=== PATIENT | female | born 1940 | race Caucasian/White ===

== ENCOUNTER 2021-10-03 07:53 | Outpatient (CLI) | payer MEDICARE, SELFPAY | END 2021-10-03 07:54 | disposition home or self-care (01) | LOC: OP CLINIC 07:54 | PROVIDERS: PCP Physician Assistant Medical; Visit Provider Internal Medicine Gastroenterology | DX: K21.9 Gastro-esophageal reflux disease without esophagitis (principal); K63.5 Polyp of colon; K64.8 Other hemorrhoids; K57.30 Diverticulosis of large intestine without perforation or abscess without bleeding | CPT/HCPCS: 45385; J2250; J3010 ==

== ENCOUNTER 2022-02-17 11:32 | Outpatient (CLI) | payer MEDICARE, SELFPAY ==
--- NOTE | 2022-02-17 11:40 | CRLHL7_ITS ---
For Patients: As a result of the Century Cures Act, medical imaging exams and procedure reports are released immediately into your electronic medical record. You may view this report before your referring provider. If you have questions, please contact your health care provider. BILATERAL SCREENING MAMMOGRAM WITH COMPUTER-AIDED DETECTION AND TOMOSYNTHESIS TECHNIQUE: CC and MLO views were obtained. These mammographic images have been obtained using full-field digital technique. These mammographic images were interpreted with the benefit of computer-aided detection. Breast Tomosynthesis was used in this interpretation. COMPARISON FILM: 11/15/20, 07/12/18, AMC-N 06/29/17. FINDINGS: There are scattered areas of fibroglandular density. IMPRESSION: There is no radiographic evidence for malignancy. ASSESSMENT: BI-RADS Category 1: Negative RECOMMENDATION: Routine screening mammogram in 1 year. A lay language report of this examination will be provided to the patient. Kenan Corona M.D. Diagnostic Radiologist [email or web address] Transcribed: 9:43 a.m. PT/Dictated by: Kenan Corona MD @ 02/21/2022 8:23:00 AM (Electronically Signed)
== END 2022-02-17 11:33 | disposition home or self-care (01) ==
PROVIDERS: PCP Physician Assistant Medical; Visit Provider Physician Assistant Medical
DX: Z12.31 Encounter for screening mammogram for malignant neoplasm of breast (principal)
CPT/HCPCS: 77063; 77067

== ENCOUNTER 2022-04-25 10:00 | Outpatient (RCR) | payer MEDICARE, SELFPAY | END 2022-04-26 11:57 | disposition home or self-care (01) | PROVIDERS: PCP Physician Assistant Medical; Visit Provider Physician Assistant Medical | DX: M62.9 Disorder of muscle, unspecified (principal) | CPT/HCPCS: 97110; 97140; 97163; 97530 ==

== ENCOUNTER 2023-12-27 10:07 | Outpatient (CLI) | payer MEDICARE, SELFPAY ==
--- OUTSIDE RECORDS SUMMARY | 2023-12-27 10:12 | XMS_ITS | Clinical Summary ---
Author Organization [facility] Address [place], [place] [address] Care Team Providers Care Psychological Stress Evaluator Name Role Phone Ester Cheney Unavailable [phone] Renetta Marie Primary Care Provider Allergies No known active allergies Medications Medication Sig Dispensed Refills Start Date End Date Status multivitamin (MVI) tablet Take 1 tablet by mouth once daily. 0 11/27/2012 Active timolol maleate (TIMOPTIC) 0.5 % ophthalmic solution Place 1 Drop into both eyes once daily. 5 mL 0 05/21/2013 Active ketoconazole 2% shampoo (NIZORAL) 2 % shampooIndications :Fungal dermatitis Shampoo the hair thoroughly each day for 3 days. 120 mL 1 01/27/2020 Active Soolantra 1 % topical creamIndications:R osacea Apply 1 Drop topically to affected area(s) once daily if needed (rosacea). 30 g 3 03/04/2021 Active ketoconazole 2% topical (NIZORAL) creamIndications:R osacea Apply to facial rash up to twice daily. 30 g 1 12/02/2021 Active enalapril (VASOTEC) 10 mg tabletIndications: Essential hypertension Take 1.5 Tablets (15 mg) by mouth two times daily. 270 Tablet 3 12/07/2023 Active hydroCHLOROthiazid e 25 mg tabletIndications: Essential hypertension Take 1 Tablet (25 mg) by mouth two times daily. 180 Tablet 3 12/07/2023 Active enalapril-hydrochl orothiazide, 10-25 mg, (VASERETIC) 10-25 mg tabletIndications: HTN (hypertension) TAKE 1 TABLET BY MOUTH TWICE DAILY 180 Tablet 3 12/05/2022 4 Discontinue d(*Patient states no longer taking) hydroCHLOROthiazid e 25 mg tabletIndications: Essential hypertension TAKE 1 TABLET(25 MG) BY MOUTH TWICE DAILY 180 Tablet 10/30/2023 4 Discontinue d(Reorder (E-cancel not sent)) enalapril (VASOTEC) 10 mg tabletIndications: Essential hypertension TAKE 1 TABLET(10 MG) BY MOUTH TWICE DAILY 180 Tablet 10/30/2023 4 Discontinue d(Reorder (E-cancel not sent)) Active Problems Problem Noted Date Diagnosed Date Essential hypertension 09/21/2017 Adenomatous colon polyp 05/10/2017 Overview (10/14/2021): Colonoscopy 04/2017 polyp, repeat in 5 years Colonoscopy 09/2021 polyp, no follow up colonoscopy needed Prediabetes 06/17/2013 Rosacea 05/21/2013 Morbid obesity with BMI of 40.0-44.9, adult 04/27 Galactorrhea of right breast 11/27/2012 Hearing loss 11/27/2012 Resolved Problems Problem Noted Date Diagnosed Date Resolved Date GERD (gastroesophageal reflux disease) 10/13/2013 06/27/2017 Encounters Date Type Department Care Team Description 12/20/2023 Orders Only [facility] Scanner 1 scan: (1-Ord) [facility] and C OF LEFT CHEST LESION, 12/20/2023 12/07/2023 7:50 AM CDT Office Visit [facility] [address] [place] [address] Renetta Marie PA Medicare ANNUAL (subsequent) Visit (83 years old) 12/06/2023 Travel 11/27/2023 Orders Only [facility] Scanner 1 scan: (1-Ord) DERMATOPATHOLOGY, SKIN, CHEST LT, 11/27/2023 11/19/2023 Telephone [facility] [address] [place] [address] Renetta Marie PA Form 11/09/2023 Refill [facility] [address] [place] [address] Renetta Marie PA Refill Request (Enalapril, Hydrochlorothiazide) 10/23/2023 Refill [facility] [address] [facility] [address] Renetta Marie PA Refill Request (Hydrochlorothiazide, Enalapril) from Last 3 Months Immunizations Name Administration Dates Next Due COVID-19 vaccine (Immune Design 30mcg/0.3mL) PF, MDV 12/24/2020,05/05/2020,04/14/2020 Influenza, High-dose Inactivated 019,02/01/2017,01/25/2016,01/22 Influenza, High-dose Quadriv alent Inactivated 12/06/2020 Influenza, IIV3 (Age 6-35 mos) 11/07/2019 Influenza, IIV3 (Age >=3 years) 12/10/2013,11/27,12/21/2011 Influenza, Inactivated AIIV4 (Age 65+ Years) Preserv Free 11/07/2022,12/02/2021 Influenza, Inactivated IIV3 (Age 65+ Years) Preserv Free 12/07/2023,01/21/2018 Pneumococcal Poly,23-Valent (Pneumovax) 03/30/2006 Pneumococcal conj 13-Valent (Prevnar 13) 06/19/2016 RSV, Bivalent Vaccine Recons tituted (Abrysvo 120MCG/0.5mL) 11/21/2023 Td (Age >=7 Years) 10/02/2005 Tdap 09/21/2017 Zoster (Shingrix-RZV, recombinant) 03/18/2019, Zoster (Zostavax-ZVL, live) 03/07/2010 Family History Medical History Relation Name Comments Cancer-breast Maternal Grandmother Alcohol/Drug Mother of alcohol ism esoph varices at 71 Cancer Sister Glioblastoma Other Sister Glioblastoma Relation Name Status Comments Father Maternal Grandmother Mother Sister Social History Tobacco Use Types Packs/Day Years Used Date Smoking Tobacco: Never Smokeless Tobacco: Never Tobacco Cessation:Counseling Given: Yes Alcohol Use Standard Drinks/Week Comments No 0 (1 standard drink = 0.6 oz pur e alcohol) PHQ-2 Answer Date Recorded PHQ-2 TOTAL SCORE 0 12/07/2023 Social Connections Answer Date Recorded Do you often feel lonely or isolated from those around you? 0 12/06/2023 Financial Resource Strain Answer Date R ecorded Difficulty of Paying Living Expenses 3 12/06/2023 Difficulty of Paying Living Expenses Not on file 12/06/2023 Food Insecurity Answer Date Recorded Do you worry your food will run out before you are able to buy more? 1 12/06/2023 Transportation Needs Answer Date Record ed Does lack of transportation keep you from medica l appointments? 1 12/06/2023 Does lack of transportation keep you from work, meetings or getting things that you need? 1 12/06/2023 Housing Stability Answer Date Recorded What is your housing situation today? 1 12/06/2023 Sex and Gender Information Value Date Recorded Sex Assigned at Not on file Gender Identity Not on file Sexual Orientation Not on file Obstetrics History Last Filed Vital Signs Vital Sign Reading Time Taken Comments Blood Pressure 135/85 12/07/2023 7:54 AM CDT Pulse 60 12/07/2023 7:54 AM CDT Temperature 36.3 ??C (97.4 ??F) 12/27/2022 11:07 AM C DT Respiratory Rate - - Oxygen Saturation 94% 12/27/2022 11:07 AM CDT Inhaled Oxygen Concentration - - Weight 106.6 kg (235 lb) 12/07/2023 7:54 AM CDT Height 150.5 cm (4' 11.25) 12/07/2023 7:54 AM C DT Body Mass Index 47.06 12/07/2023 7:54 AM CDT Plan of Treatment Health Maintenance Due Date Last Done Comments COVID-19 vaccine series ( season) 2023 05/04/2023, 10/04/2022, 11/18/2021, Additional history exists BMI (ht and wt on same day) for age 18+ 12/06/2024 12/07/2023, 12/27/2022, 12/05/2022, Additional history exists Depression screening for age 12+ 12/06/2024 12/07/2023, 12/05/2022, 12/02/2021, Additional history exists Medicare Wellness for age 65+ 12/07/2024, 12/05/2022, 12/02/2021, Additional history exists Tetanus booster 09/22/2027 09/21/2017, 10/02/2005 Pneumococcal series for age 65+ Completed 7, 03/30/2006 DEXA/DXA scan for age 65+ Completed 06/26/2016 Tdap Completed 09/21/2017 Zoster (shingles) series for age 50+ Completed 03/18/2019, 10/24/2018, 03/07/2010 RSV vaccine for adults or Completed 11/21/2023 Influenza for age 65+ Completed 12/07/2023 , 11/07/2022, 12/02/2021, Additional history exists Procedures Procedure Name Priority Date/Time Associated Diagnosis Comments SCAN-OPERATIVE/PRO CEDURE REPORT 12/20/2023 12:00 AM CDT VITAMIN D 25 (DEFICIENCY) Routine 12/07/2023 8:36 AM CDT Vitamin D deficiency LIPID PANEL W REFLEX MEASURED LDL Routine 12/07/2023 8:36 AM CDT Screening cholesterol level BASIC METABOLIC PANEL Routine 12/07/2023 8:36 AM CDT Essential hypertension SCAN-PATHOLOGY REPORT 11/27/2023 12:00 AM CDT XR DXA BONE DENSITY 2 SITES AXIAL Routine 06/26/2016 11:00 AM CDT Screening for osteoporosis from Last 3 Months or Most Recently Relevant to Health Maintenance Results * SCAN-OPERATIVE/PROCEDURE REPORT (12/20/2023 12:00 AM CDT) Scanner OTHER * (ABNORMAL) LIPID PANEL W REFLEX MEASURED LDL (12/07/2023 8:36 AM CDT) CHOLESTEROL, TOTAL 186 <200 mg/dL [facility] HDL CHOLESTEROL 54 > OR = 50 mg/dL [facility] TRIGLYCERIDES 112 <150 mg/dL [facility] LDL-CHOLESTEROL 110(H) mg/dL (calc) [facility] Comment: Reference range: <100 Desirable range <100 mg/dL for primary prevention; ?? <70 mg/dL for patients with CHD or diabetic patients with > or = 2 CHD risk factors. LDL-C is now calculated using the Jackie calculation, which is a validated novel method providing better accuracy than the Friedewald equation in the estimation of LDL-C. Matt CANNON et al. WAYNE. 2013;310(19): 3023-5713 (http://education.Verisim/faq/XGA474) CHOL/HDLC RATIO 3.4 <5.0 (calc) [facility] NON HDL CHOLESTEROL 132(H) <130 mg/dL (calc) [facility] Comment: For patients with diabetes plus 1 major ASCVD risk factor, treating to a non-HDL-C goal of <100 mg/dL (LDL-C of <70 mg/dL) is considered a therapeutic option. Blood BLOOD SPECIMEN / Unknown 12/07/2023 8:36 AM CDT 12/07/2023 8:37 AM CDT Renetta SRTICKLAND CHEMISTRY [facility] [address] [place] [address], [facility] [address] [place] [address] * (ABNORMAL) VITAMIN D 25 (DEFICIENCY) (12/07/2023 8:36 AM CDT) VITAMIN D,25-OH,TOTAL,IA 24(L) 30 - 100 ng/mL [facility] Comment: Vitamin D Status ? 25-OH Vitamin D: Deficiency: ?<20 ng/mL Insufficiency: ? 20 - 29 ng/mL Optimal: ? > or = 30 ng/mL For 25-OH Vitamin D testing on patients on D2-supplementation and patients for whom quantitation of D2 and D3 fractions is required, the Quest[facility]ure[facility](TM) 25-OH VIT D, (D2,D3), LC/MS/MS is recommended: order code 20573 (patients >2yrs). See Note 1 Note 1 For additional information, please refer to http://education.Verisim/faq/YJP996 (This link is being provided for informational/ educational purposes only.) Blood BLOOD SPECIMEN / Unknown 12/07/2023 8:36 AM CDT 12/07/2023 8:37 AM CDT Renetta STRICKLAND SEND OUTS [employer] [address] [place] [address], [facility] [address] [place] [address] * (ABNORMAL) BASIC METABOLIC PANEL (12/07/2023 8:36 AM CDT) [facility] GLUCOSE 103(H) 65 - 99 mg/dL [facility] Comment: ? Fasting reference interval For someone without known diabetes, a glucose value between 100 and 125 mg/dL is consistent with prediabetes and should be confirmed with a follow-up test. UREA NITROGEN (BUN) 29(H) 7 - 25 mg/dL [facility] CREATININE 1.07(H) 0.60 - 0.95 mg/dL [facility] EGFR 51(L) > OR = 60 mL/min/1.7 3m2 [facility] BUN/CREATININE RATIO 27(H) 6 - 22 (calc) [facility] SODIUM 138 135 - 146 mmol/L [facility] POTASSIUM 4.5 3.5 - 5.3 mmol/L [facility] CHLORIDE 101 98 - 110 mmol/L [facility] CARBON DIOXIDE 26 20 - 32 mmol/L [facility] ELECTROLYTE BALANCE 11 7 - 17 mmol/L (calc) [facility] CALCIUM 9.8 8.6 - 10.4 mg/dL [facility] Blood BLOOD SPECIMEN / Unknown 12/07/2023 8:36 AM CDT 12/07/2023 8:37 AM CDT Renetta STRICKLAND CHEMISTRY [facility] [address] [place] [address], [facility] [address] [place] [address] * SCAN-PATHOLOGY REPORT (11/27/2023 12:00 AM CDT) Scanner OTHER * XR DXA BONE DENSITY 2 SITES AXIAL (06/26/2016 11:00 AM CDT) Anatomical Region Laterality Modality Spine, HIPS, HIPL, HIPR Other Narrative 07/04/2016 11:40 AM CDT Please see scanned document for results of this study. Humble Saleem MD DEXA from Last 3 Months or Most Recently Relevant to Health Maintenance Advance Directives Documents on File Type Date Recorded Patient Plastics Fabricator Or Welder Expl anation Healthcare Directive 10/09/2019 020 Healthcare Directive 05/22/2013 10:21 AM H [facility] CARE INSTRUCTIONS/ANATOMICA L MIGUEL, SAMIR KINGSTON, 09/16/2009 Care Teams Psychological Stress Evaluator Relationship Specialty Start Date End Date Renetta Marie PA [address] [place] [address] PCP - General Physician Associate Professor Of Forestry 10/05/20 Ester Cheney AuD Audiology 12/12/12
--- NOTE | 2023-12-27 10:15 | CRLHL7_ITS ---
For Patients: As a result of the Century Cures Act, medical imaging exams and procedure reports are released immediately into your electronic medical record. You may view this report before your referring provider. If you have questions, please contact your health care provider. BILATERAL SCREENING MAMMOGRAM WITH COMPUTER-AIDED DETECTION AND TOMOSYNTHESIS TECHNIQUE: CC and MLO views were obtained. These mammographic images have been obtained using full-field digital technique. These mammographic images were interpreted with the benefit of computer-aided detection. Breast Tomosynthesis was used in this interpretation. COMPARISON FILM: 02/17/22, 11/15/20, 07/12/18. FINDINGS: There are scattered areas of fibroglandular density. IMPRESSION: There is no radiographic evidence for malignancy. ASSESSMENT: BI-RADS Category 1: Negative RECOMMENDATION: Routine screening mammogram in 1 year. A lay language report of this examination will be provided to the patient. Kenan Corona M.D. Diagnostic Radiologist [email or web address] SP/Dictated by: Kenan Corona MD @ 12/27/2023 11:13:00 AM (Electronically Signed)
== END 2023-12-27 10:08 | disposition home or self-care (01) ==
LOC: MAMMO 10:08
PROVIDERS: PCP Physician Assistant Medical; Visit Provider Surgery
DX: Z12.31 Encounter for screening mammogram for malignant neoplasm of breast (principal)
CPT/HCPCS: 77063; 77067